=== PATIENT | female | born 1980 | race Caucasian/White ===

== ENCOUNTER 2016-07-23 10:18 | Outpatient (CLI) | payer OTHER, MEDICAID ==
[~2016-07-23 10:18] MED LIST: ALBU8.5H2 IH; DCS100C PO; GBPN300C PO; HYDR-3720 PO; Ibuprofen PO
[2016-09-23] MEDS ORDERED: OXYC-465 PO (16:43)
[2016-09-23] MEDS ORDERED: DOCU100C37 PO (16:43)
[2016-09-23] MEDS ORDERED: IBUP-1780 PO (16:43)
== END 2016-07-23 11:00 | disposition home or self-care (01) ==
LOC: WSo 10:18 → LDRP 10:18 → WSo 11:00
PROVIDERS: ATTEND Obstetrics & Gynecology
DX: Z41.8 Encounter for other procedures for purposes other than remedying health state (principal)
CPT/HCPCS: 96372

== ENCOUNTER 2016-09-15 08:40 | Inpatient (IN) | payer OTHER, MEDICAID ==
[~2016-09-15] VITALS: Ht 171.4 cm; Wt 108.6 kg
[2016-09-23] VITALS (44 sets, daily range): BP systolic 77–142; BP diastolic 43–80
[2016-09-23] MEDS ORDERED: D5 LR IV SOLUTION 1,000 ML IV SCH (07:48)
[2016-09-23] MEDS ORDERED: OXYTOCIN/NORMAL SALINE 500 ML IV SCH ×2 (07:48→16:26)
--- NOTE | 2016-09-23 07:53 | OB Bishop Score ---
Blanchard Score 8 MADDI MUNGUIA MD Sep 23, 2016 7:53 am
--- NOTE | 2016-09-23 07:53 | History & Physical ---
History and Physical this patient is a 35-year-old white female with an EDC of October 06, 2016 putting her at 38-1/7 weeks gestation. complicated progressive oligohydramnios. Her GBS culture on September 01, 2016 was negative. She did experience an episode of genital herpes on September 08. That has now resolved. She is on suppressive Valtrex. Ultrasound yesterday showed an MARCELO of 38. Previous MARCELO was 84. Decision made to proceed with induction due to marked oligohydramnios. patient reports occasional contractions. She denies rupture membranes or bleeding. Allergies are none Estimated history, past surgical history, obstetric history, family history, and social histories are per the antepartum record HEENT exam is normal Neck is supple no lymphadenopathy no thyromegaly Abdomen is gravid soft nontender nondistended Extremities show no clubbing or cyanosis. There is no Homans sign. Pelvic exam yesterday in clinic showed a cervix about 2 similar dilated 50 percent effaced the presenting part was the vertex at the -2 station cervix was mid position and very soft. this equates to a Blanchard score of 8 Assessment and plan 38-1/7 weeks gestation with oligohydramnios. Patient is admitted for Pitocin induction of labor. Expectation is for vaginal delivery. 38-1/7 weeks gestation with oligohydramnios Allergies and Home Medications Allergies Coded Allergies: NKANo Known Allergies (Verified Allergy, Unknown, 04/08/06) Home Medications 800 MG TAB #60 800 MG PO Q6H Prescribed by: MADDI KIMBLE on 03/04/142027 Docusate Sodium 100 Mg Capsule #60 1 CAP PO DAILY PRN PRN CONSTIPATION Prescribed by: MADDI KIMBLE on 03/04/142027 Hydrocodone Bit/Acetaminophen 1 Each Tablet #60 1-2 TAB PO Q3H PRN PRN PAIN Prescribed by: MADDI KIMBLE on 03/04/142027 MADDI MUNGUIA MD Sep 23, 2016 7:53 am
[2016-09-23] MEDS ORDERED: OXYTOCIN/NORMAL SALINE 500 ML IV ONE (08:09)
[2016-09-23] MEDS ORDERED: D5 LR IV SOLUTION 1,000 ML IV ONE (08:10)
[2016-09-23] MEDS ORDERED: SUFENTA 0.6MCG/ML BUPIVA 0.125 100 ML ONE (08:30)
[2016-09-23] MEDS ORDERED: BUPIVACAINE 0.25% 30 ML (SENSORCAINE) VIAL ONE (08:35)
[2016-09-23] MEDS ORDERED: LACTATED RINGERS 1,000 ML IV ONE (09:34)
[2016-09-23] MEDS ORDERED: BUPIVACAINE 0.25% 30 ML (SENSORCAINE) VIAL INJ ONE (09:45)
[2016-09-23] MEDS ORDERED: EPIDURAL (SUFENTA 0.6MCG/ML BUPIVA 0.125%) 100 ML BAG EPI SCH (09:45)
[2016-09-23] MEDS ORDERED: NALOXONE 0.4 MG/ML 1 ML (NARCAN) VIAL IV PRN (09:45)
[2016-09-23] MEDS ORDERED: LIDOCAINE/EPI 1%-1:200,000 (XYLOCAINE) 30 ML VIAL ONE (15:35)
[2016-09-23] MEDS ORDERED: BENZOCAINE/MENTHOL (DERMOPLAST) 56 ML CAN TP PRN (16:30)
[2016-09-23] MEDS ORDERED: TETANUS,DIPTH,PERTUSS P/F (BOOSTRIX) 0.5 ML VIAL IM ONE (16:30)
[2016-09-23] MEDS ORDERED: oxyCODONE/APAP 10/325MG (PERCOCET 10) TABLET PO PRN (16:30)
[2016-09-23] MEDS ORDERED: OXYC-465 PO (16:43)
[2016-09-23] MEDS ORDERED: IBUP-1780 PO (16:43)
[2016-09-23] MEDS ORDERED: DOCU100C37 PO (16:43)
--- NOTE | 2016-09-23 16:45 | Discharge Instructions ---
Discharge Instructions Patient Instructions Patient Instructions: as directed [facility] to [facility]: as instructed Activity & Diet Discharge Diet: No Restrictions Activity as Tolerated: No Orders-Post D/C & Referrals Follow Up Appt: Call to make follow up appt. for patient in 4 weeks. Activity Per routine post vaginal delivery instructions. Diet as tolerated Patient may shower or tub bathe as desired. MADDI MUNGUIA MD Sep 23, 2016 4:45 pm
[2016-09-23] MEDS ORDERED: FLU TRIvalent (5 YOA+) 2016-17 (AFLURIA) 0.5 ML IM ONE (17:30)
[2016-09-23] MEDS: KETOROLAC 30 MG/ML VIAL IV SCH (18:59)
[2016-09-23] MEDS: DOCUSATE SODIUM 100 MG (COLACE) CAP PO SCH (21:56)
[2016-09-24] MEDS: KETOROLAC 30 MG/ML VIAL IV SCH ×2 (02:12→02:13)
[2016-09-24] MEDS ORDERED: IBUPROFEN 800 MG (MOTRIN) TAB PO ONE ×2 (02:50→08:47)
[2016-09-24] MEDS: IBUPROFEN 800 MG (MOTRIN) TAB PO SCH ×4 (02:57→20:30)
[2016-09-24 03:55] VITALS: BP 106/67
--- NOTE | 2016-09-24 07:53 | Progress Note-Standard ---
Standard Progress Note Progress Notes/Assess & Plan Progress/Assessment & Plan patient is without complaint. She is ambulating, voiding, tolerating by mouth well, denies chest pain, denies shortness of breath, denies headache, denies nausea vomiting, patient has good pain control. Vital Signs Date Time Temp Pulse Resp B/P Pulse Ox O2 Delivery O2 Flow Rate FiO2 09/24/16 03:55 97.8 62 18 106/67 98 Room Air 09/23/16 23:45 97.6 68 18 97/59 96 Room Air 09/23/16 20:00 97.8 99 18 119/72 98 Room Air 09/23/16 18:31 90 18 119/56 09/23/16 18:06 87 18 104/56 09/23/16 17:52 83 18 101/53 09/23/16 17:37 101 18 96/50 09/23/16 17:22 104 18 126/63 09/23/16 17:07 94 18 116/59 09/23/16 16:52 89 18 106/54 09/23/16 16:37 81 18 107/55 09/23/16 16:30 20 09/23/16 16:15 88 20 116/58 09/23/16 16:00 20 09/23/16 15:45 82 20 142/72 09/23/16 15:30 77 20 121/60 09/23/16 15:15 87 20 134/80 09/23/16 15:00 74 20 117/62 09/23/16 14:45 74 20 117/62 09/23/16 14:30 68 20 119/57 09/23/16 14:15 75 20 136/71 09/23/16 14:00 66 20 116/64 09/23/16 13:45 68 20 119/59 09/23/16 13:30 66 20 106/55 09/23/16 13:15 66 20 109/55 09/23/16 13:00 66 20 112/59 09/23/16 12:45 61 20 107/53 09/23/16 12:30 59 20 109/53 09/23/16 12:15 99.6 55 20 113/57 09/23/16 12:00 55 20 113/57 09/23/16 11:45 60 20 118/63 09/23/16 11:30 59 20 104/59 09/23/16 11:15 68 20 100/56 09/23/16 11:00 69 20 98/54 09/23/16 10:45 69 20 98/54 09/23/16 10:30 68 20 99/58 09/23/16 10:15 69 20 101/52 09/23/16 10:00 99.0 104 20 122/59 99 Room Air 09/23/16 09:45 72 20 114/59 99 Room Air 09/23/16 09:30 69 20 110/55 100 Room Air 09/23/16 09:15 69 20 103/57 99 Room Air 09/23/16 09:00 75 20 116/56 99 09/23/16 08:45 75 20 116/56 99 09/23/16 08:30 71 20 116/55 99 09/23/16 08:15 71 20 116/55 09/23/16 08:00 65 20 109/62 I & O 09/24/16 07:00 Intake Total 1500 ml Balance 1500 ml vital signs are stable. Patient is afebrile. Fundus is firm below the umbilicus and nontender. Extremities show clubbing cyanosis. There is no Homans sign. There is some pretibial pitting edema that is normal. Assessment and plan day number 1 doing well. Plan is for routine convalescence care today and we'll plan for discharge home tomorrow MADDI MUNGUIA MD Sep 24, 2016 7:53 am
[2016-09-24] MEDS ORDERED: TETANUS,DIPTH,PERTUSS P/F (BOOSTRIX) 0.5 ML VIAL IM ONE (08:47)
[2016-09-24] MEDS: DOCUSATE SODIUM 100 MG (COLACE) CAP PO SCH ×2 (08:53→20:30)
[2016-09-24 08:59] VITALS: BP 123/80
[2016-09-24] MEDS ORDERED: WITCH HAZEL(TUCKS) 40 EA JAR ONE (09:03)
[2016-09-24] MEDS ORDERED: WITCH HAZEL(TUCKS) 40 EA JAR TOP PRN (09:15)
--- NOTE | 2016-09-24 10:46 | PROCEDURE REPORT ---
PROCEDURE PHYSICIAN: MADDI MUNGUIA DELIVERY NOTE DATE OF DELIVERY: 09/23/2016 DATE OF DICTATION: 09/23/2016 The patient delivered by term spontaneous vaginal delivery of a viable female infant with Apgars of 8 and 9 at one and five minutes respectfully. Weight was 7 pounds. Delivery time was 1552. The infant was delivered over a midline episiotomy that was performed as the baby's heart rate was decreased and the mom could not expel the baby. She requested episiotomy, which was performed and the baby delivered promptly. The was bulb suctioned on delivery of the head and again on completion of delivery. The cord was doubly clamped and cut when it became pulseless, The baby was passed to mom's abdomen. Cord bloods were obtained including a cord blood for a pH which is pending. The placenta delivered spontaneously Steele. It was normal with a 3 vessel cord. The cervix, vagina, rectum and perineum were examined and found intact except for the midline episiotomy that was repaired in the usual manner with a single suture of 3-0 Vicryl Rapide. Sponge and needle counts were correct on completion of the delivery and the repair. Estimated blood loss was around 300 mL. The patient tolerated the delivery and repair well and remained in the LDR for recovery. The baby remained with the mom. Job ID: [id number] Dictated Date: 09/23/2016 16:24:25 Plaster Applicator Date: 09/24/2016 10:42:58 / sherita
--- NOTE | 2016-09-24 14:49 | Anesthesia-Regional Post-Op ---
Regional Patient Condition Mental Status: Alert, Oriented x3 Circulation: Same as Pre-Op Headache: Absent Sensation: Full Recovery Motor Block: Absent Post Op Complications Complications None Follow Up Care/Instructions Patient Instructions None needed. Anesthesia/Patient Condition Patient is doing well, no complaints, stable vital signs, no apparent adverse anesthesia problems. No complications reported per nursing. LEONEL MONTERROSO CRNA Sep 24, 2016 14:49
[2016-09-24 15:20] VITALS: BP 122/74
[2016-09-24 20:30] VITALS: BP 112/65
[2016-09-25 02:00] VITALS: BP 93/50
[2016-09-25] MEDS: IBUPROFEN 800 MG (MOTRIN) TAB PO SCH ×3 (02:17→14:33)
--- NOTE | 2016-09-25 07:57 | Progress Note-Standard ---
Standard Progress Note Progress Notes/Assess & Plan Progress/Assessment & Plan patient is without complaint. She is ambulating, voiding, tolerating by mouth well, denies chest pain, denies shortness of breath, denies headache, denies nausea vomiting, patient has good pain control. Vital Signs Date Time Temp Pulse Resp B/P Pulse Ox O2 Delivery O2 Flow Rate FiO2 09/24/16 03:55 97.8 62 18 106/67 98 Room Air 09/23/16 23:45 97.6 68 18 97/59 96 Room Air 09/23/16 20:00 97.8 99 18 119/72 98 Room Air 09/23/16 18:31 90 18 119/56 09/23/16 18:06 87 18 104/56 09/23/16 17:52 83 18 101/53 09/23/16 17:37 101 18 96/50 09/23/16 17:22 104 18 126/63 09/23/16 17:07 94 18 116/59 09/23/16 16:52 89 18 106/54 09/23/16 16:37 81 18 107/55 09/23/16 16:30 20 09/23/16 16:15 88 20 116/58 09/23/16 16:00 20 09/23/16 15:45 82 20 142/72 09/23/16 15:30 77 20 121/60 09/23/16 15:15 87 20 134/80 09/23/16 15:00 74 20 117/62 09/23/16 14:45 74 20 117/62 09/23/16 14:30 68 20 119/57 09/23/16 14:15 75 20 136/71 09/23/16 14:00 66 20 116/64 09/23/16 13:45 68 20 119/59 09/23/16 13:30 66 20 106/55 09/23/16 13:15 66 20 109/55 09/23/16 13:00 66 20 112/59 09/23/16 12:45 61 20 107/53 09/23/16 12:30 59 20 109/53 09/23/16 12:15 99.6 55 20 113/57 09/23/16 12:00 55 20 113/57 09/23/16 11:45 60 20 118/63 09/23/16 11:30 59 20 104/59 09/23/16 11:15 68 20 100/56 09/23/16 11:00 69 20 98/54 09/23/16 10:45 69 20 98/54 09/23/16 10:30 68 20 99/58 09/23/16 10:15 69 20 101/52 09/23/16 10:00 99.0 104 20 122/59 99 Room Air 09/23/16 09:45 72 20 114/59 99 Room Air 09/23/16 09:30 69 20 110/55 100 Room Air 09/23/16 09:15 69 20 103/57 99 Room Air 09/23/16 09:00 75 20 116/56 99 09/23/16 08:45 75 20 116/56 99 09/23/16 08:30 71 20 116/55 99 09/23/16 08:15 71 20 116/55 09/23/16 08:00 65 20 109/62 I & O 09/24/16 07:00 Intake Total 1500 ml Balance 1500 ml vital signs are stable. Patient is afebrile. Fundus is firm below the umbilicus and nontender. Extremities show clubbing cyanosis. There is no Homans sign. There is some pretibial pitting edema that is normal. Assessment and plan day number 1 doing well. Plan is for routine convalescence care today and we'll plan for discharge home tomorrow September 25, 2016 Patient without complaint. She is ambulating, voiding, tolerating by mouth well , has good pain control and is requesting discharge home. Vital Signs Date Time Temp Pulse Resp B/P Pulse Ox O2 Delivery O2 Flow Rate FiO2 09/25/16 02:00 97.6 68 19 93/50 98 Room Air 09/24/16 20:30 97.2 78 18 112/65 100 Room Air 09/24/16 15:20 97.8 68 18 122/74 99 Room Air 09/24/16 08:59 98.1 101 18 123/80 98 Room Air signs are stable. Patient is afebrile. Fundus is firm below the umbilicus nontender. Extremities show clubbing cyanosis. There is no Homans sign. Assessment and plan day number 2 status post return spontaneous vaginal delivery doing well. Plan is for discharge home with follow-up in clinic. Final Diagnosis return spontaneous vaginal delivery MADDI MUNGUIA MD Sep 25, 2016 7:57 am
[2016-09-25 08:35] VITALS: BP 118/77
[2016-09-25] MEDS: DOCUSATE SODIUM 100 MG (COLACE) CAP PO SCH (08:36)
== END 2016-09-25 15:25 | disposition home or self-care (01) | DRG 774 ==
LOC: LDRP 09-23 07:15
PROVIDERS: ADMIT Obstetrics & Gynecology; ATTEND Obstetrics & Gynecology
PROC: 0W8NXZZ Division of Female Perineum, External Approach (ICD-10-PCS; principal; 2016-09-23)
PROC: 10E0XZZ Delivery of Products of Conception, External Approach (ICD-10-PCS; 2016-09-23)
PROC: 3E033VJ Introduction of Other Hormone into Peripheral Vein, Percutaneous Approach (ICD-10-PCS; 2016-09-23)
DX: O41.03X0 Oligohydramnios, third trimester, not applicable or unspecified (principal); O98.52 Other viral diseases complicating childbirth; Z3A.38 38 weeks gestation of pregnancy; Z37.0 Single live birth; Z23 Encounter for immunization
CPT/HCPCS: 83033; 88307; 90715

== ENCOUNTER → 2019-09-06 | Outpatient (CLI) | payer OTHER ==
[~2019-09-06] MED LIST changes: +DOCU100C37 PO; +IBUP-1780 PO; +OXYC-465 PO
--- NOTE | 2019-09-06 13:05 | NUR ---
to OB for ordered rhogam administration.
--- NOTE | 2019-09-06 13:47 | NUR ---
out of WS via ambulation. no s/s of distress noted.
== END ==
LOC: WSo 13:07
PROVIDERS: ATTEND Obstetrics & Gynecology
DX: Z67.91 Unspecified blood type, Rh negative (principal)
CPT/HCPCS: 96372

== ENCOUNTER 2019-11-03 00:32 | Outpatient (CLI) | payer OTHER, MEDICAID ==
[~2019-11-03] VITALS: Ht 172.7 cm; Wt 106.0 kg
--- NOTE | 2019-11-03 00:45 | NUR ---
BERNA DAMON presented to unit via ambulation from ED, accompanied by mother, with c/o CONTRACTIONS. BERNA DAMON weighed, gowned, voided, and to bed. EFHM and TOCO applied, VS taken. BERNA DAMON oriented to bed controls, call light, TV, heat, and A/C controls.
[2019-11-03 00:50] VITALS: BP 121/78
[2019-11-03] MEDS ORDERED: D5 LR IV SOLUTION 1,000 ML IV ONE (01:00)
--- NOTE | 2019-11-03 01:03 | NUR ---
Dr Colon contacted with report. Orders obtained and continue to monitor.
[2019-11-03] MEDS ORDERED: D5 LR IV SOLUTION 1,000 ML IV SCH (01:20)
[2019-11-03 02:00] VITALS: BP 121/78
[2019-11-03 02:06] VITALS: BP 121/78
[2019-11-03 02:30] VITALS: BP 116/69
[2019-11-03 03:20] LABS: BASOPHILS % (AUTO) 0 % (0-10); EOSINOPHILS # (AUTO) 0.2 10^3/uL (0.0-0.3); EOSINOPHILS % (AUTO) 1 % (0-10); HEMATOCRIT 32 % (35-52); HEMOGLOBIN 10.5 G/DL (11.5-16.0); LYMPHOCYTES # (AUTO) 2.2 X 10^3 (1.0-4.0); LYMPHOCYTES % (AUTO) 19 % (12-44); MEAN CORPUSCULAR HEMOGLOBIN 30 PG (25-34); MEAN CORPUSCULAR HGB CONC 33 G/DL (32-36); MEAN CORPUSCULAR VOLUME 92 FL (80-99); MEAN PLATELET VOLUME 9.9 FL (7.4-10.4); MONOCYTES # (AUTO) 0.7 X 10^3 (0.0-1.0); MONOCYTES % (AUTO) 6 % (0-12); NEUTROPHILS # (AUTO) 8.6 X 10^3 (1.8-7.8); NEUTROPHILS % (AUTO) 74 % (42-75); PLATELET COUNT 308 10^3/uL (130-400); RED CELL DISTRIBUTION WIDTH 13.1 % (10.0-14.5); WHITE BLOOD COUNT 11.7 10^3/uL (4.3-11.0)
[2019-11-03 04:00] VITALS: BP 108/52
--- NOTE | 2019-11-03 04:37 | NUR ---
Pt up to void and back to bed, pt feeling better and wondering if she will go home this am. this RN educated on process and that Dr will see her this am.
[2019-11-03 07:20] VITALS: BP 125/73
--- NOTE | 2019-11-03 07:37 | History & Physical ---
History and Physical Date Seen by Provider: Nov 03, 2019 Time Seen by Provider: 07:35 This patient is a 38-year-old white female with a due date of November 25, 2019 putting her at 36-6/7 weeks' gestation. She presented with complaint of contractions pain and pressure. She was angie every 2-3 minutes. She was admitted for observation and started on IV fluids. IV fluids eventually had the effect of halting the contractions. She had minimal if any cervical change during the period of observation. She had no rupture membranes or bleeding. She had a normal reactive monitor pattern. Patient's contractions by this morning now have resolved. Patient's history is significant for GBS negative culture after 35 weeks gestation. Allergies are none Medications are vitamins Medical social and surgical histories are per the antepartum record HEENT exam is normal Neck is supple no lymphadenopathy no thyromegaly Abdomen is gravid soft nontender nondistended Extremities show no clubbing cyanosis. Is no Homans sign. Pelvic exam shows a cervix is generous 1 cm dilated 30 percent effaced -1 to -2 station vertex presentation intact membranes with a mid to slightly posterior and soft cervix Laboratory Tests Test 11/03/19 02:37 Range/Units White Blood Count 11.7 H 4.3-11.0 10^3/uL Red Blood Count 3.47 L 4.35-5.85 10^6/uL Hemoglobin 10.5 L 11.5-16.0 G/DL Hematocrit 32 L 35-52 % Mean Corpuscular Volume 92 80-99 FL Mean Corpuscular Hemoglobin 30 25-34 PG Mean Corpuscular Hemoglobin Concent 33 32-36 G/DL Red Cell Distribution Width 13.1 10.0-14.5 % Platelet Count 308 130-400 10^3/uL Mean Platelet Volume 9.9 7.4-10.4 FL Neutrophils (%) (Auto) 74 42-75 % Lymphocytes (%) (Auto) 19 12-44 % Monocytes (%) (Auto) 6 0-12 % Eosinophils (%) (Auto) 1 0-10 % Basophils (%) (Auto) 0 0-10 % Neutrophils # (Auto) 8.6 H 1.8-7.8 X 10^3 Lymphocytes # (Auto) 2.2 1.0-4.0 X 10^3 Monocytes # (Auto) 0.7 0.0-1.0 X 10^3 Eosinophils # (Auto) 0.2 0.0-0.3 10^3/uL Basophils # (Auto) 0.0 0.0-0.1 10^3/uL Vital Signs Date Time Temp Pulse Resp B/P (MAP) Pulse Ox O2 Delivery O2 Flow Rate FiO2 11/03/19 04:00 36.2 64 20 108/52 (70) 11/03/19 02:30 37.1 75 20 116/69 (85) 11/03/19 02:06 36.9 103 20 99 Room Air 11/03/19 02:00 36.9 103 20 99 Room Air 11/03/19 00:50 36.9 103 20 121/78 (92) 99 Vital signs are stable. Patient is afebrile. Assessment and plan 36-6/7 weeks' gestation with labor now resolved. Plan is for discharge home with follow-up in clinic labor at 36-6/7 weeks' gestation Allergies and Home Medications Allergies Coded Allergies: NKANo Known Allergies (Verified Allergy, Unknown, 04/08/06) Home Medications Docusate Sodium 100 Mg Capsule, 100 MG PO BID Prescribed by: MADDI KIMBLE on 09/23/16 1643 Ibuprofen 800 Mg Tablet, 800 MG PO Q6H Prescribed by: MADDI KIMBLE on 09/23/16 1643 Oxycodone HCl/Acetaminophen 1 Each Tablet, 1-2 TAB PO Q4H PRN for PAIN Prescribed by: MADDI KIMBLE on 09/23/16 1643 Patient Home Medication List Home Medication List Reviewed: Yes Clinical Quality Measures DVT/VTE Risk/Contraindication: Risk Factor Score Per Nursin RFS Level Per Nursing on Admit: 1=Low/No VTE PPX MADDI MUNGUIA MD Nov 03, 2019 07:37
--- NOTE | 2019-11-03 07:38 | Discharge Inst-Surgical ---
Discharge Inst-Surgical Depart Medication/Instructions New, Converted or Re-Newed RX: Other Consults/Follow Up Patient Instructions: As directed Orders & Referrals Return to clinic as scheduled Activity Activity as Tolerated: Yes Diet Discharge Diet: No Restrictions MADDI MUNGUIA MD Nov 03, 2019 07:38
[2019-11-03] MEDS ORDERED: VALA500T4 PO (08:14)
[2019-11-03] MEDS ORDERED: PYRI25TA3 PO (08:14)
[2019-11-03] MEDS ORDERED: DOXY25TA56 PO (08:14)
[2019-11-03] MEDS ORDERED: CITA40TA19 PO (08:14)
[2019-11-03] MEDS ORDERED: FOLI0.4T2 PO (08:14)
[2019-11-03] MEDS ORDERED: CETI10CA PO (08:14)
[2019-11-03] MEDS ORDERED: CHOL200059 PO (08:14)
[2019-11-03] MEDS ORDERED: OMEP20TA7 PO (08:14)
[2019-11-03] MEDS ORDERED: PREN1TAB79 PO (08:14)
--- NOTE | 2019-11-03 08:31 | NUR ---
Discharge instructions and medications reviewed with patient both written and verbally. Patient verbalizes understanding and questions answered. IV DC'd and band aid applied.
--- NOTE | 2019-11-03 08:35 | NUR ---
Patient discharged at this time and ambulated from the unit accompanied by family. No signs or symptoms of distress noted.
== END 2019-11-03 08:35 | disposition home or self-care (01) ==
LOC: WSo 00:32 → LDRP 00:33 → WSo 08:35
PROVIDERS: ATTEND Obstetrics & Gynecology
DX: O60.03 Preterm labor without delivery, third trimester (principal); Z3A.36 36 weeks gestation of pregnancy
CPT/HCPCS: 36415; 85025; 86850; 86900; 86901; 96360; 96361; 99214

== ENCOUNTER 2019-11-17 17:00 | Inpatient (IN) | payer OTHER, MEDICAID ==
[~2019-11-17] VITALS: Ht 172.7 cm; Wt 106.8 kg
[2019-11-17] VITALS (30 sets, daily range): BP systolic 109–152; BP diastolic 56–95
[~2019-11-17 17:00] MED LIST changes: +CETI10CA PO; +CHOL200059 PO; +CITA40TA19 PO; +DOXY25TA56 PO; +FOLI0.4T2 PO; +OMEP20TA7 PO; +PREN1TAB79 PO; +PYRI25TA3 PO; +VALA500T4 PO
--- NOTE | 2019-11-17 17:08 | NUR ---
BERNA DAMON presented to unit via from ED, accompanied by mother, with c/o CONTRACTIONS,LOST MUCUS PLUG. BERNA DAMON weighed, gowned, voided, and to bed. EFHM and TOCO applied, VS taken. BERNA DAMON oriented to bed controls, call light, TV, heat, and A/C controls.
--- NOTE | 2019-11-17 17:45 | NUR ---
dr schmitz notified of patient c/o, retail account manager. new orders received.
[2019-11-17] MEDS ORDERED: D5 LR IV SOLUTION 1,000 ML IV ONE (17:47)
[2019-11-17] MEDS: D5 LR IV SOLUTION 1,000 ML IV SCH (18:05)
[2019-11-17 18:25] LABS: BASOPHILS % (AUTO) 0 % (0-10); EOSINOPHILS # (AUTO) 0.1 10^3/uL (0.0-0.3); EOSINOPHILS % (AUTO) 1 % (0-10); HEMATOCRIT 36 % (35-52); HEMOGLOBIN 11.7 G/DL (11.5-16.0); LYMPHOCYTES # (AUTO) 2.2 X 10^3 (1.0-4.0); LYMPHOCYTES % (AUTO) 21 % (12-44); MEAN CORPUSCULAR HEMOGLOBIN 30 PG (25-34); MEAN CORPUSCULAR HGB CONC 33 G/DL (32-36); MEAN CORPUSCULAR VOLUME 92 FL (80-99); MEAN PLATELET VOLUME 9.9 FL (7.4-10.4); MONOCYTES # (AUTO) 0.8 X 10^3 (0.0-1.0); MONOCYTES % (AUTO) 8 % (0-12); NEUTROPHILS # (AUTO) 7.1 X 10^3 (1.8-7.8); NEUTROPHILS % (AUTO) 69 % (42-75); PLATELET COUNT 357 10^3/uL (130-400); RED CELL DISTRIBUTION WIDTH 13.6 % (10.0-14.5); WHITE BLOOD COUNT 10.2 10^3/uL (4.3-11.0)
[2019-11-17] MEDS ORDERED: fentaNYL 2 mcg/ml BUPIVA 0.125 100 ML ONE (19:03)
[2019-11-17] MEDS ORDERED: OXYTOCIN PRE-MIX DRIP 500 ML IV ONE (19:03)
[2019-11-17] MEDS ORDERED: fentaNYL INJECTION 100 MCG/2 ML AMP ONE (19:41)
[2019-11-17] MEDS ORDERED: BUPIVACAINE 0.25% 30 ML (SENSORCAINE) VIAL ONE (19:41)
[2019-11-17] MEDS ORDERED: LACTATED RINGERS 1,000 ML IV SCH (20:23)
[2019-11-17] MEDS ORDERED: METOCLOPRAMIDE INJ 10 MG/2 ML (REGLAN) IV PRN (20:30)
[2019-11-17] MEDS ORDERED: ONDANSETRON 4 MG/2 ML (SDV) Z0FRAN IV PRN (20:30)
[2019-11-17] MEDS ORDERED: NALOXONE 0.4 MG/ML 1 ML (NARCAN) VIAL IV PRN ×2 (20:30)
[2019-11-17] MEDS ORDERED: EPIDURAL (fentaNYL 2 MCG/ML BUPIVA 0.125%)100 ML BAG EPI PRN (20:30)
[2019-11-17] MEDS ORDERED: diphenhydrAMINE 50 MG/ML INJ (BENADRYL) IV PRN (20:30)
[2019-11-17] MEDS ORDERED: OXYTOCIN PRE-MIX DRIP 500 ML IV SCH (20:35)
[2019-11-18] VITALS (21 sets, daily range): BP systolic 106–152; BP diastolic 55–86
[2019-11-18] MEDS ORDERED: OXYTOCIN PRE-MIX DRIP 500 ML IV SCH (00:17)
--- NOTE | 2019-11-18 00:17 | History & Physical ---
History and Physical Date Seen by Provider: November 18, 2019 Time Seen by Provider: 18:30 This patient is a 38-year-old white female with an EDC of 5 1620 putting her now at 39 weeks gestation. She presented with complaint of contractions pain and pressure. She denied ruptured membranes or bleeding. She had no problems with this to date. GBS culture done after 35 weeks gestation was negative. Allergies are none Medications are vitamins Medical social and surgical histories are per the antepartum record HEENT exam is normal Neck is supple no lymphadenopathy and no thyromegaly Abdomen is gravid soft nontender nondistended Extremities show clubbing or cyanosis. There is no Homans sign. Pelvic exam is pending Assessment and plan 39 weeks gestation in active labor. Anticipate a vaginal delivery 39 week gestation in active labor Allergies and Home Medications Allergies Coded Allergies: NKANo Known Allergies (Verified Allergy, Unknown, 04/08/06) Home Medications Cetirizine HCl 10 Mg Capsule, 10 MG PO DAILY, (Reported) Cholecalciferol (Vitamin D3) 50 Mcg Tablet, 2,000 MCG PO DAILY, (Reported) Citalopram Hydrobromide 40 Mg Tablet, 40 MG PO DAILY, (Reported) Folic Acid 0.4 Mg Tablet, 0.4 MG PO DAILY, (Reported) Omeprazole 20 Mg Tablet.dr, 20 MG PO DAILY, (Reported) Vit W-Ca,Fe,FA(<1 mg) 1 Each Tablet, 1 EACH PO DAILY, (Reported) Valacyclovir HCl 500 Mg Tablet, 500 MG PO DAILY, (Reported) Patient Home Medication List Home Medication List Reviewed: Yes Clinical Quality Measures DVT/VTE Risk/Contraindication: Risk Factor Score Per Nursin RFS Level Per Nursing on Admit: 2=Moderate MADDI MUNGUIA MD November 18, 2019 00:17
[2019-11-18] MEDS ORDERED: IBUP-1780 PO (00:23)
[2019-11-18] MEDS ORDERED: OXYC1TAB87 PO (00:23)
--- NOTE | 2019-11-18 00:24 | Discharge Inst-Surgical ---
Discharge Inst-Surgical Depart Medication/Instructions New, Converted or Re-Newed RX: RX on Chart Consults/Follow Up Patient Instructions: DIRECTED Orders & Referrals Follow Up Appt: Call to make follow up appt. for patient in 4 weeks. Activity Per routine post vaginal delivery instructions. Please call in RX to patient pharmacy. Diet as tolerated Patient may shower or tub bathe as desired. Activity Activity as Tolerated: No Diet Discharge Diet: No Restrictions MADDI MUNGUIA MD November 18, 2019 00:24
[2019-11-18] MEDS ORDERED: ONDANSETRON 4 MG/2 ML (SDV) Z0FRAN IVP PRN (00:30)
[2019-11-18] MEDS ORDERED: TETANUS,DIPTH,PERTUSS P/F (BOOSTRIX) 0.5 ML VIAL IM ONE (00:30)
[2019-11-18] MEDS ORDERED: MEASLES,MUMPS,RUBELLA 1 EA INJ SC ONE (00:30)
[2019-11-18] MEDS ORDERED: oxyCODONE/APAP 5/325MG (PERCOCET 5) TABLET PO PRN (00:30)
[2019-11-18] MEDS ORDERED: BENZOCAINE/MENTHOL (DERMOPLAST) 60 ML CAN TP PRN (00:30)
[2019-11-18] MEDS ORDERED: LIDOCAINE/EPI 2% 1:200,00 (XYLOCAINE) 20 ML VIAL ONE (00:58)
--- NOTE | 2019-11-18 01:44 | OPERATIVE REPORT ---
DATE OF SERVICE: 11/18/2019 DELIVERY NOTE The patient delivered by term spontaneous vaginal delivery at 39 weeks gestation, a viable male infant with Apgars of 7 and 8 at 1 and 5 minutes respectively. Weight that is 9 pounds and 4 ounces, cord blood pH is pending and a time of 0115. The was bulb suctioned on delivery of the head. A single nuchal cord was easily released, and the delivered completely atraumatically. The was bulb suctioned, dried and stimulated. The umbilical cord when pulseless was doubly clamped and the patient's mother cut the cord and the baby was passed to mom's abdomen. Cord bloods were obtained. The placenta delivered spontaneously Steele. It was normal with a 3-vessel cord. The cervix, vagina, rectum, and perineum were examined and found intact, except for some superficial periurethral lacerations and a second-degree perineal laceration that was repaired with a single suture of 3-0 Vicryl Rapide in the usual manner without difficulty under the epidural analgesia. Sponge and needle counts were correct on completion of delivery and repair. Estimated blood loss was around 100 mL. The patient tolerated the delivery and the repair well and remained in the LDR for recovery. The baby remained with the mom. Job ID: [id number] DocumentID: [id number] Dictated Date: 11/18/2019 01:35:45 Forge Shop Supervisor Date: 11/18/2019 01:43:17 Dictated By: MADDI MUNGUIA MD MTDD
[2019-11-18] MEDS: KETOROLAC 30 MG/ML VIAL IVP SCH ×2 (03:13→08:51)
--- NOTE | 2019-11-18 04:00 | NUR ---
pericare completed. ff 1 below. light rubra noted. pad changed. pericare completed. pt assisted to w'c and taken down to 309. pt denies the urge to void. pt assisted to bed. info papers discussed. pt denies any needs at this time. will continue to monitor.
--- NOTE | 2019-11-18 05:30 | NUR ---
pt ambulated to the bathroom. positive void. pericare completed. pt ambulated back to bed. pt denies any needs. family remains at bedside.
[2019-11-18] MEDS: IBUPROFEN 800 MG (MOTRIN) TAB PO SCH ×3 (07:38→20:13)
[2019-11-18] MEDS: CATHETER FLUSH 10 ML SYR IV SCH ×3 (08:52→14:00)
[2019-11-18] MEDS: DOCUSATE SODIUM 100 MG (COLACE) CAP PO SCH ×2 (08:52→20:13)
--- NOTE | 2019-11-18 09:26 | Anesthesia-Regional Post-Op ---
Regional Patient Condition Mental Status: Alert, Oriented x3 Circulation: Same as Pre-Op Headache: Absent Sensation: Full Recovery Motor Block: Absent Post Op Complications Complications None Follow Up Care/Instructions Patient Instructions None needed. Anesthesia/Patient Condition Patient is doing well, no complaints, stable vital signs, no apparent adverse anesthesia problems. No complications reported per nursing. GABBI CASTRO CRNA November 18, 2019 09:26
[2019-11-18] MEDS: D5 LR IV SOLUTION 1,000 ML IV SCH ×2 (10:57→17:50)
--- NOTE | 2019-11-18 20:25 | NUR ---
pt resting in bed holding nb. assessment completed. mother at bedside. Pt denies any needs at this time. will continue to monitor.
[2019-11-19] MEDS: IBUPROFEN 800 MG (MOTRIN) TAB PO SCH ×2 (01:48→08:46)
[2019-11-19 02:30] VITALS: BP 106/67
[2019-11-19] MEDS: DOCUSATE SODIUM 100 MG (COLACE) CAP PO SCH (08:45)
[2019-11-19 08:50] VITALS: BP 114/65
--- NOTE | 2019-11-19 09:11 | Progress Note ---
Standard Progress Note Progress Notes/Assess & Plan Date Seen by a Provider: November 19, 2019 Time Seen by a Provider: 09:10 Progress/Assessment & Plan This patient is without complaint. She is ambulating, voiding, tolerating oral intake well has good pain control. Vital Signs Date Time Temp Pulse Resp B/P (MAP) Pulse Ox O2 Delivery O2 Flow Rate FiO2 11/19/19 02:30 36.5 58 18 106/67 (80) 97 Room Air 11/18/19 20:19 37.0 68 18 106/65 (79) 97 Room Air 11/18/19 16:00 36.6 68 18 116/64 (81) Room Air 11/18/19 12:00 60 18 110/63 (79) Room Air Vital signs are stable. Patient is afebrile. The abdomen is benign. Fundus is firm below the umbilicus and nontender. Extremities show no clubbing cyanosis. There is no Homans sign. Assessment and plan day number 1 status post term spontaneous vaginal delivery at 39 weeks gestation plan is for discharge home Final Diagnosis 39 week spontaneous vaginal delivery MADDI MUNGUIA MD November 19, 2019 09:11
== END 2019-11-19 14:40 | disposition home or self-care (01) | DRG 807 ==
LOC: WSo 17:00 → LDRP 17:00 → WSo 17:44 → LDRP 17:45
PROVIDERS: ADMIT Obstetrics & Gynecology; ATTEND Obstetrics & Gynecology
PROC: 10E0XZZ Delivery of Products of Conception, External Approach (ICD-10-PCS; principal; 2019-11-18)
PROC: 0KQM0ZZ Repair Perineum Muscle, Open Approach (ICD-10-PCS; 2019-11-18)
DX: O70.1 Second degree perineal laceration during delivery (principal); O71.82 Other specified trauma to perineum and vulva; O69.81X0 Labor and delivery complicated by cord around neck, without compression, not applicable or unspecified; Z3A.39 39 weeks gestation of pregnancy; Z37.0 Single live birth
CPT/HCPCS: 36415; 83033; 85025; 86850; 86900; 86901; 99212